=== PATIENT | male | born 1975 ===

== ENCOUNTER 2024-03-05 12:42 | Emergency (ER) | payer BC, SELFPAY ==
[2024-03-05 12:52] VITALS: BP 140/101
[2024-03-05 13:06] LABS: % Basophils 0.4 % (0-2); % Eosinophils 1.3 % (0-6); % Immature Granulocytes 0.3 % (0-0.5); % Monocytes 5.6 % (1.7-9.3); % Neutrophils 72.4 % (42.2-75.2); Absolute Eosinophils 0.1 10^3/uL (0-0.7); Absolute Lymphocytes 1.5 10^3/uL (1.2-3.4); Absolute Monocytes 0.4 10^3/uL (0.1-0.6); Absolute Neutrophils 5.4 10^3/uL (1.4-6.5); Hematocrit 39.3 % (39.0-52.0); Hemoglobin 14.3 g/dL (13.0-18.0); Mean Corp Hgb Conc. 36.4 g/dL (33.0-37.0); Mean Corpuscular Hgb 31.9 pg (27.0-31.0); Mean Corpuscular Volume 87.7 fL (80.0-94.0); Mean Platelet Volume 8.8 fL (7.4-10.4); Nucleated Red Blood Cells % 0 % (-); Platelet Count 199 10^3/uL (130-400); Red Blood Cell Count 4.48 10^6/uL (4.70-6.10); Red Cell Dist. Width 11.9 % (11.5-14.5); White Blood Cell Count 7.5 10^3/uL (4.8-10.8)
[2024-03-05 13:24] LABS: ALT (SGPT) 26 U/L (0-50); AST (SGOT) 42 U/L (17-59); Albumin 4.2 g/dl (3.5-5.0); Alkaline Phosphatase 74 U/L (38-126); Blood Urea Nitrogen 16 mg/dl (9-20); Calcium 9.7 mg/dl (8.4-10.2); Carbon Dioxide 27 mmol/L (22-30); Chloride 101 mmol/L (98-107); Glucose 95 mg/dl (70-99); Potassium 3.9 mmol/L (3.5-5.1); Sodium 139 mmol/L (135-145); Total Protein 7.3 g/dl (6.3-8.2); eGFR > 60.00
[2024-03-05 13:28] LABS: Troponin I < 0.012 ng/ml
[2024-03-05 14:00] VITALS: BP 136/71; BMI 25.7
[2024-03-05] MEDS: DECADRON 10 MG PO (14:43)
[2024-03-05] MEDS: DUONEB 3 ML INH (14:44)
--- NOTE | 2024-03-05 14:47 | ED.GENMED ---
History of Present Illness
<Kevin Pyle Jr., PA-C - Last Filed: 03/06/24 09:20>
General
Chief Complaint: Chest Pain
Source: patient and spouse
Exam Limitations: none
Time Seen by Provider: 03/05/24 14:26
Nursing documentation reviewed up to this point in time: agreed with
Travel History
Have you had any contact with someone who has COVID-19?: No
Do you have any symptoms of coronavirus? Fever > 100 degrees, chills, cough, shortness of breath, sore throat, loss of taste or smell, muscle aches, or headache?: No
History of Present Illness
History of Present Illness:
48-year-old male with past medical history of hypertension presenting to the emergency department today with concerns of a few weeks of cough today started with some chest tightness with exertion some shortness of breath no nausea vomiting no
fevers. No history of asthma or COPD. No history of heart disease.
Review of Systems
<Kevin Pyle Jr., PA-C - Last Filed: 03/06/24 09:20>
Review of Systems
Allergies reviewed?: Yes
All Other Systems: ROS reviewed and negative except as documented in HPI and ROS
Phy Exam
<KAMI Wilson Jr. Last Filed: 03/06/24 09:20>
Physical Exam
Physical Exam:
GENERAL: Alert , in no apparent distress
EYE: pupils equal and reactive
NECK: Supple, no significant adenopathy.
ENT: o/p clr, mmm.
CARDIAC: Regular rate and rhythm .
LUNGS: Subtle expiratory wheeze and rhonchi diffusely.
ABDOMEN: Soft, without focal tenderness, no r/g, no cvat
NEUROLOGICAL: Alert and oriented, no focal neuro deficits
SKIN: Warm and dry, skin intact.
MUSCULOSKELETAL: No edema, well perfused.
PSYCH: Normal and appropriate interaction.
Scores
<Kevin Pyle Jr., PA-C - Last Filed: 03/06/24 09:20>
Heart Score for Chest Pain Patients
Heart Score for Chest Pain Patients: 3
Heart Score Risk: 2.5% MACE over next 6 weeks
<Carter Key MD - Last Filed: 03/05/24 19:08>
Heart Score for Chest Pain Patients
STEMI patient?: No
History: Slightly or Non-Suspicious
ECG: Nonspecific Repolarization
Age: >45 - <65 years
Risk Factors: 1 or 2 Risk Factors
Troponin: </= Normal Limit
Heart Score for Chest Pain Patients: 3
Heart Score Risk: 2.5% MACE over next 6 weeks
Course
<Kevin Pyle Jr., PA-C - Last Filed: 03/06/24 09:20>
Orders/Labs/Results
Orders:
Orders
03/05/24 12:54
ECG [Electrocardiogram (*1)] Urgent
Reason for Study: Chest Pain
EKG- Treatment ONCE
03/05/24 12:59
Complete Blood Count/With Diff Urgent
Comprehensive Metabolic Panel Urgent
NT-proBNP Urgent
Comment: ADD
Troponin I Urgent
03/05/24 14:26
Chest [CR Chest - 2 Views ] Urgent
Comment:
Reason For Exam: cp
03/05/24 14:37
Dexamethasone [Decadron] 10 mg PO NOW STA
Ipratropium/Albuterol Sulfate [Duoneb] 3 ml INH R NOW ONE
03/05/24 14:47
Add On- LAB Urgent
Tests Added?: BNP
03/05/24 15:01
EKG [Electrocardiogram (*1)] Urgent
Reason for Study: Chest Pain
EKG- Treatment ONCE
03/05/24 15:37
Pro-BNP [NT-proBNP] Urgent
Troponin I Urgent
Abnormal Lab Results
03/05/24
12:59
RBC 4.48 L 10^6/uL
(4.70-6.10)
MCH 31.9 H pg
(27.0-31.0)
Lymphocytes % 20.0 L %
(20.5-51.1)
03/05/24 12:59
03/05/24 12:59
Vital Signs
Initial and Last Documented VS:
Initial Vital Signs
Temp Pulse Resp BP Pulse Ox
98.7 F 69 18 140/101 99
03/05/24 12:52 03/05/24 12:52 03/05/24 12:52 03/05/24 12:52 03/05/24 12:52
Last Documented Vital Signs
Temp Pulse Resp BP Pulse Ox
98.2 F 64 20 140/86 94
03/05/24 14:00 03/05/24 17:00 03/05/24 17:00 03/05/24 16:00 03/05/24 17:00
<Carter Key MD - Last Filed: 03/05/24 19:08>
Orders/Labs/Results
Orders:
Orders
03/05/24 12:54
ECG [Electrocardiogram (*1)] Urgent
Reason for Study: Chest Pain
EKG- Treatment ONCE
03/05/24 12:59
Complete Blood Count/With Diff Urgent
Comprehensive Metabolic Panel Urgent
NT-proBNP Urgent
Comment: ADD
Troponin I Urgent
03/05/24 14:26
Chest [CR Chest - 2 Views ] Urgent
Comment:
Reason For Exam: cp
03/05/24 14:37
Dexamethasone [Decadron] 10 mg PO NOW STA
Ipratropium/Albuterol Sulfate [Duoneb] 3 ml INH R NOW ONE
03/05/24 14:47
Add On- LAB Urgent
Tests Added?: BNP
03/05/24 15:01
EKG [Electrocardiogram (*1)] Urgent
Reason for Study: Chest Pain
EKG- Treatment ONCE
03/05/24 15:37
Pro-BNP [NT-proBNP] Urgent
Troponin I Urgent
Abnormal Lab Results
03/05/24
12:59
RBC 4.48 L 10^6/uL
(4.70-6.10)
MCH 31.9 H pg
(27.0-31.0)
Lymphocytes % 20.0 L %
(20.5-51.1)
03/05/24 12:59
03/05/24 12:59
Vital Signs
Initial and Last Documented VS:
Initial Vital Signs
Temp Pulse Resp BP Pulse Ox
98.7 F 69 18 140/101 99
03/05/24 12:52 03/05/24 12:52 03/05/24 12:52 03/05/24 12:52 03/05/24 12:52
Last Documented Vital Signs
Temp Pulse Resp BP Pulse Ox
98.2 F 64 20 140/86 94
03/05/24 14:00 03/05/24 17:00 03/05/24 17:00 03/05/24 16:00 03/05/24 17:00
<Kevin Pyle Jr., PA-C - Last Filed: 03/06/24 09:20>
MDM/Problems Addressed
MDM/Problems Addressed:
48-year-old male presenting to the emergency department today with concerns of cough over the past few weeks and also chest tightness and shortness of breath made worse with exertion today minimal symptoms at this point. Lungs with adventitious
sounds including some slight wheeze and rhonchi with exertion diffusely. Patient does have a bronchospastic cough. Patient was given a DuoNeb as well as steroid. Cardiac evaluation without emergent findings EKG nonischemic no arrhythmia. No
history of blood clots no recent leg swelling no recent trauma surgery immobilization. Patient given DuoNeb with improvement. Also given dexamethasone. Chest x-ray without emergent findings. Patient doing well here stable for discharge return
precautions given. Additionally patient had nonspecific EKG changes but no old for comparison. Cardiology was consulted to see the patient and determined that this is unlikely be cardiac in origin and will schedule outpatient further assessment.
<Carter Key MD - Last Filed: 03/05/24 19:08>
*Critical Care Note
Total Time (30-74mins, 75-104mins- exclusive of procedures): Not Applicable
<Carter Key MD - Last Filed: 03/05/24 19:08>
Update Note
Update Note:
Seen and cleared by cardiology for follow-up.
ED Attending Note
<Kevin Pyle Jr., PA-C - Last Filed: 03/06/24 09:20>
-
Portions of this chart may have been created with voice recognition software.� Occasional wrong word or��sound alike� substitutions may have occurred due to the inherent limitations of voice recognition software.
<Carter Key MD - Last Filed: 03/05/24 19:08>
ED Attending Note
Patient seen and examined by attending physician: Yes
I performed the substantive portion of visit, reviewed & personally made and approve the management plan that is documented in note by myself or BEN.: Yes
ED Attending Note:
48-year-old male with history of hypertension presents with exertional chest tightness throughout the day. Has had URI type symptoms over the last month. Some cough. No fever. No pleuritic pain. Symptoms are essentially resolved at this time.
On exam patient is nontoxic in no distress. Lungs have occasional rhonchi in both bases. Regular rate and rhythm no murmur. Warm and dry. Perfusing well.
EKG has inferior lateral T wave biphasic/inversions. Troponin is stable. Awaiting repeat troponin. Patient symptoms are somewhat concerning. This may be all respiratory in nature but with the T wave changes and no comparison, will ask for
cardiac's evaluation
Discharge Plan
Departure
Patient Disposition: Home (Routine Discharge)
Date of Disposition: 03/05/24
Time of Disposition: 16:59
Patient with high blood pressure during this ER visit?: No
Condition: Good
Covid-19: Not Applicable
Discharge Problem:
Wheezing
Instructions: Acute Bronchitis, Adult (DC), Chest Pain DCA Follow Up
Prescriptions:
New
prednisone 50 mg tablet
50 mg PO DAILY 4 Days Qty: 4 0RF
No Action
lisinopril-hydrochlorothiazide 20-12.5 mg Tablet
1 tab PO DAILY
Referrals:
Kyle Stark MD [Active] - Call in 1-3 days for appt
Jovanny Taylor Jr., MD [Family Provider] -
Activity Restrictions/Additional Instructions:
You came to the emergency department today with concerns of cough over the past few weeks and some tightness and shortness of breath with ambulation today. You are found to have some wheezing on lung exam you are given steroids and nebulizer
treatment. Please continue the steroids prednisone once daily for the next 4 days and follow close with the primary care doctor. Additionally your EKG had nonspecific changes please follow closely for this moving forward for reassessment.
Interventions
Interventions:
*Risk Screen - Suicide Last Done: 03/05/24 14:00
*General Assessment Last Done: 03/05/24 14:00
*Neglect/Abuse Screening Last Done: 03/05/24 14:00
ED- Fall Risk Assessment Last Done: 03/05/24 14:00
*ED COVID-19 Vaccine History Last Done: 03/05/24 12:52
*Nursing Disposition Last Done: 03/05/24 17:09
ED- Cardiac Assessment Last Done: 03/05/24 14:00
ED- Pulmonary Assessment Last Done: 03/05/24 14:00
Discharge Date and Time
Discharge Date/Time: 03/05/24 17:10
Print Language: FAROESE
[2024-03-05 16:00] VITALS: BP 140/86
[2024-03-05 16:09] LABS: NT-proBNP < 20.0 pg/ml; Troponin I < 0.012 ng/ml
[2024-03-05 16:15] LABS: NT-proBNP < 20.0 pg/ml
--- NOTE | 2024-03-05 16:23 | CON.CAR ---
Addendum entered and electronically signed by Kyle Stark MD 03/05/24 17:15:
I saw and examined the patient.
The MEDICAL ILLUSTRATOR or PA's note was reviewed and I agree with the note.
Comment: General: Well developed, well nourished in NAD.
Neck: Supple, no JVD, HJR, carotids +2 B/L, no bruits bilaterally.
Heart: Non displaced PMI, RRR, no murmurs, No S3, S4, no rubs.
Lungs: rare scattered wheezes
Extremities: No clubbing, cyanosis or edema bilaterally.
Neuro: Grossly nonfocal, awake, alert and oriented x3.
Donis has a history of hypertension. He presents for evaluation of chest tightness. He has had a cough recently with shortness of breath. He is also had nasal congestion. He has had increasing fatigue. He normally exercises and has run 3 to 4
miles until a month ago. He complained of upper chest tightness earlier today. He felt it was worse when he exerted. Also felt it was worse when he took a deep breath. He normally can climb 3 flights of steps and does so every day at work.
Cardiology is asked to see patient after abnormal ECG. Troponins are undetectable x 2
Chest pain is felt to be atypical for cardiac etiology. He is wheezing on examination. ECG changes are nonspecific. Stable cardiology status for discharge. Will arrange outpatient stress echo after he has completed treatment for bronchitis by ER
staff
Original Note:
Consultation
Consultation Request
Date/Time Consultation Requested: 03/05/2024
Date/Time Consultation Performed: 03/05/2024
Requesting Provider: Robert Pyle PA-C
Performing Provider: Malia Jasso PA-C for Dr. Stark
Reason for Consultation: CP
Medical History
-
Chief Complaint: CP
History of Present Illness:
Patient is a 48-year-old male with past medical history of hypertension who presented to [facility] due to complaints of chest tightness as well as cough. Also reports some CHANG. Patient reports several weeks ago he started with upper
respiratory symptoms including congestion and cough. His also had similar illness. Since that time he has felt increased fatigue. He reports he is an active individual and exercises on a daily basis. At times he runs 8 to 10 miles several
times a week and lifts weights several times a week. Since his respiratory illness he has noted some reduced exercise tolerance but continues to run 3 to 4 miles. His exercise has been limited by shortness of breath but denies chest pain. This
morning he started noticing upper chest tightness. When he exerted himself he felt mild shortness of breath and reports it hurts to take a deep breath. He has had a persistent cough over the last several weeks. He did not test himself for COVID.
He denies palpitations, edema, orthopnea, PND, dizziness or lightheadedness. He has no cardiac history and has never seen a extension course coordinator before. Chest x-ray shows no acute cardiopulmonary abnormality. Troponins negative x 2. EKG shows sinus
rhythm with diffuse nonspecific T wave abnormality. Blood pressure initially was elevated on arrival at 140/101. Improved to 136/71. He reports his outpatient he takes lisinopril HCTZ. HCTZ was recently added due to poorly controlled blood
pressure. Cardiology consulted for evaluation.
PMH:
HTN
Gluten intolerance
Remote micturition syncope in 2018 felt to be related to dehydration
Past Medical History
Past Medical History: Other (in HPI)
Past Surgical History: Urological (Vasectomy)
Social History
Tobacco: Non-Smoker
Alcohol: Occasional
Drug: None
Personal:
Living: With Family
Employment: Employed
Family History
Family History: Hypertension and Other (Maternal grandparents had coronary artery disease)
Allergies / Home Medications
Allergy/AdvReac Type Severity Reaction Status Date / Time
No Known Allergies Allergy Unverified 03/05/24 12:52
�Medication �Instructions �Recorded �Confirmed �Type
lisinopril 20 1 tab PO DAILY 03/05/24 03/05/24 History
mg-hydrochlorothiazide 12.5 mg
tablet
prednisone 50 mg tablet 50 mg PO DAILY 4 days #4 tabs 03/05/24 Rx
Review of Systems
-
History Source: Patient
All other systems: Negative unless noted
Physical Exam
Vital Signs
Temp Pulse Resp BP Pulse Ox
98.2 F 70 14 140/86 96
03/05/24 14:00 03/05/24 16:15 03/05/24 16:15 03/05/24 16:00 03/05/24 16:15
GEN: No distress, awake, Ox3, sitting in bed resting comfortable
HEENT: supple, anicteric, mmm
LUNGS: Decreased breath sounds with faint expiratory wheezes. Cough with deep breath and improvement of wheezing after coughing. No rales/crackles
CV: Reg, S1/S2, no murmur, rubs or gallops
ABD: soft, BS+, NT/ND
EXT: No edema, clubbing or cyanosis
NEURO: Gross non-focal
SKIN: No rash, warm, dry, pink
Lab Results
03/05/24 12:59
03/05/24 12:59
Troponin I < 0.012 ng/ml 03/05/24 15:37
Jen-M-Apjdpsaowcp Pept < 20.0 pg/ml 03/05/24 15:37
Impression / Plan
-
Primary Experience Specialist: none, initial consult Dr. Hudson
PCP: Petar Wilder
Assessment:
Presentation 03/05/24 with cough, chest discomfort
URI x 2 weeks
Serially negative troponins x 2
Abnormal EKG with diffuse nonspecific T wave abnormality
Wheezing, concern for acute bronchitis
HTN
Plan:
-Presentation 03/05/24 with cough, chest discomfort and mild dyspnea on exertion.
-Serially negative troponin x 2, proBNP less than 20. Chest x-ray unremarkable.
-Patient has been dealing with upper respiratory infection consistent with bronchitis for several weeks. Symptoms and examination consistent with bronchitis. Agree with starting steroids Medrol Dosepak
-Abnormal EKG with diffuse nonspecific T wave abnormality. Could be secondary to repolarization abnormality from hypertension.
-Given serial negative troponin and abnormal EKG would proceed with outpatient echocardiogram and stress echo
-Continue lisinopril HCTZ for hypertension
-If patient should have worsening chest pain associated with shortness of breath, diaphoresis, dizziness lightheadedness instructed to return to emergency department
Data Reviewed
-
EKG: Tracing Personally Visualized and interpreted, Discussed with Physician, Discussed with Patient and Discussed with Family
Radiology: Report Reviewed by me, Discussed with Physician, Discussed with Patient and Discussed with Family
Labs: Labs Reviewed by me, Discussed with Physician, Discussed with Patient and Discussed with Family
Old Records: Reviewed
== END 2024-03-05 17:10 | disposition home or self-care (01) ==
LOC: EMR 12:42
PROVIDERS: Emergency Medicine; Physician Assistant; EMERGENCY PHYSICIAN Emergency Medicine; FAMILY PHYSICIAN Family Medicine
DX: R06.2 Wheezing (principal); R07.89 Other chest pain; I10 Essential (primary) hypertension; Z82.49 Family history of ischemic heart disease and other diseases of the circulatory system
CPT/HCPCS: 99283; 94640; 71046; 80053; 83880; 84484; 85025; 93005

== ENCOUNTER → 2024-04-03 12:38 | Outpatient (REF) | payer BC, SELFPAY | LOC: RCS 12:38 | PROVIDERS: ATTENDING PHYSICIAN Internal Medicine Cardiovascular Disease; FAMILY PHYSICIAN Family Medicine | DX: R07.89 Other chest pain (principal); R06.09 Other forms of dyspnea; R94.31 Abnormal electrocardiogram [ECG] [EKG] | CPT/HCPCS: 93017; 93350 ==